=== PATIENT | male | born 1965 | race Two or more races ===

== ENCOUNTER 2017-11-23 21:35 | Emergency (ER) | payer MEDICAID, OTHER ==
[~2017-11-23] VITALS: Ht 177.8 cm; Wt 77.1 kg
[2017-11-23] MEDS ORDERED: cefTRIAXone 1GM/10ml IVPUSH 10 ML IV ONE (21:45)
[2017-11-23] MEDS ORDERED: ONDANSETRON HCL 4 MG/2 ML VIAL IV ONE (21:45)
[2017-11-23] MEDS ORDERED: MORPHINE SULFATE 4 MG/ML SYR/VIAL IV ONE (21:45)
[2017-11-23] MEDS ORDERED: TETANUS-DIPTH-ACEL PERTUSSIS 0.5ML SYRG IM ONE (21:45)
[2017-11-24 02:13] VITALS: BP 132/83
== END 2017-11-24 05:14 | disposition left against medical advice (07) ==
LOC: EDBD 21:35 → ER 21:38
DX: S68.626A Partial traumatic transphalangeal amputation of right little finger, initial encounter (principal); Z53.29 Procedure and treatment not carried out because of patient's decision for other reasons; W23.0XXA Caught, crushed, jammed, or pinched between moving objects, initial encounter; Y93.89 Activity, other specified; Y99.8 Other external cause status; Y92.89 Other specified places as the place of occurrence of the external cause
CPT/HCPCS: 73140; 90471; 90715; 96374; 96375; 99284; J0696; J2270; J2405

== ENCOUNTER 2020-11-30 14:48 | Emergency (ER) | payer MEDICAID ==
[~2020-11-30] VITALS: Ht 167.6 cm; Wt 72.6 kg
[2020-11-30] MEDS ORDERED: HYDROcodone-ACET 10/325MG TAB PO ONE (16:15)
[2020-11-30] MEDS ORDERED: PROPOFOL 100 ML IV ONE (18:10)
[2020-11-30] MEDS ORDERED: PROPOFOL 10 MG/ML 20 ML IV ONE (18:15)
[2020-11-30 18:20] VITALS: BP 135/80
== END 2020-11-30 18:57 | disposition home or self-care (01) ==
LOC: ER 14:48
DX: S93.04XA Dislocation of right ankle joint, initial encounter (principal); S82.401A Unspecified fracture of shaft of right fibula, initial encounter for closed fracture; E11.9 Type 2 diabetes mellitus without complications; I10 Essential (primary) hypertension; W01.0XXA Fall on same level from slipping, tripping and stumbling without subsequent striking against object, initial encounter; Y93.89 Activity, other specified; Y92.89 Other specified places as the place of occurrence of the external cause; Y99.8 Other external cause status
CPT/HCPCS: 27840; 73600; 73700; 99152; 99285; J2704; 29515

== ENCOUNTER → 2020-12-14 | Outpatient (CLI) | payer MEDICAID ==
[~2020-12-14] VITALS: Ht 162.6 cm; Wt 76.7 kg
[~2020-12-14] MED LIST: BROM2.5T5 PO; CLON0.5T3 PO; HYDR-4072 PO; HYDR1TAB97 PO; HYDR25TA4 PO; LATA0.0020 OP; LEVO75CA3 PO; LOSA-69 PO; OMEP20TA PO; TAMS0.4C36 PO
[2020-12-14 14:20] LABS: Basophils # (auto) 0.1 10 ^3/uL (0-0.2); Basophils % (auto) 0.7 % (0.0-2.0); Eosinophils # (auto) 0.2 10 ^3/uL (0-0.8); Lymphocytes # (auto) 1.9 10 ^3/uL (0.4-5.4); Neutrophils # (auto) 5.1 10 ^3/uL (1.6-8.6)
[2020-12-14 14:23] LABS: Eosinophils % (auto) 2.5 % (0.0-7.0); Hematocrit 38.9 % (41.0-53.0); Hemoglobin 12.8 g/dL (13.5-17.5); Lymphocytes % (auto) 23.7 % (10.0-50.0); Mean Corpuscular Hemoglobin 26.3 pg (28.0-32.0); Mean Corpuscular Volume 79.6 fL (80.0-100.0); Monocytes # (auto) 0.6 10 ^3/uL (0-1.3); Monocytes % (auto) 8.3 % (0.0-12.0); Neutrophils % (auto) 64.8 % (37.0-80.0); Nucleated Red Blood Cells % 0.1 %; Red Blood Cells 4.88 10^6/uL (4.5-5.90); Red Cell Distribution Width 16.3 % (11.8-14.3); White Blood Cell 7.8 10^3/uL (4.4-10.8)
[2020-12-14 14:48] LABS: Urine Bacteria NONE SEEN /hpf (None Seen); Urine Blood Negative /uL (Negative); Urine Specific Gravity 1.012 (1.001-1.035); Urine WBC <1 /hpf (0 - 3)
[2020-12-14 15:05] LABS: Albumin 3.6 g/dL (3.4-5.0); Calcium 8.6 mg/dL (8.5-10.1); Potassium 3.4 mmol/L (3.5-5.1)
[2020-12-14 15:24] LABS: BUN/Creatinine Ratio 17.1; Bilirubin, Total 0.4 mg/dL (0.2-1.0); Total Protein 7.9 g/dL (6.4-8.2)
== END | disposition home or self-care (01) ==
LOC: LAB 13:50 → EDSTATUS 12-16 12:27
PROVIDERS: ATTEND Orthopaedic Surgery
DX: Z01.818 Encounter for other preprocedural examination (principal); S82.851A Displaced trimalleolar fracture of right lower leg, initial encounter for closed fracture; Z82.49 Family history of ischemic heart disease and other diseases of the circulatory system; Z20.822 Contact with and (suspected) exposure to COVID-19; X58.XXXA Exposure to other specified factors, initial encounter; Y92.89 Other specified places as the place of occurrence of the external cause; Y93.89 Activity, other specified; Y99.8 Other external cause status
CPT/HCPCS: 36415; 80053; 81001; 85025; U0003

== ENCOUNTER 2020-12-15 14:53 | Inpatient (IN) | payer MEDICAID ==
[~2020-12-15] VITALS: Ht 160 cm; Wt 75.8 kg
[~2020-12-15 14:53] MED LIST changes: -HYDR-4072 PO; -LEVO75CA3 PO
[2020-12-15 17:09] LABS: Basophils # (auto) 0 10 ^3/uL (0-0.2); Basophils % (auto) 0.5 % (0.0-2.0); Hemoglobin 12.8 g/dL (13.5-17.5); Monocytes # (auto) 0.7 10 ^3/uL (0-1.3); White Blood Cell 7.6 10^3/uL (4.4-10.8)
[2020-12-15 17:11] LABS: Eosinophils # (auto) 0.2 10 ^3/uL (0-0.8); Eosinophils % (auto) 2.1 % (0.0-7.0); Hematocrit 38.9 % (41.0-53.0); Lymphocytes # (auto) 1.9 10 ^3/uL (0.4-5.4); Mean Corpuscular Hemoglobin 26.4 pg (28.0-32.0); Mean Corpuscular Volume 80.1 fL (80.0-100.0); Monocytes % (auto) 9.3 % (0.0-12.0); Neutrophils # (auto) 4.8 10 ^3/uL (1.6-8.6); Neutrophils % (auto) 63.1 % (37.0-80.0); Red Blood Cells 4.86 10^6/uL (4.5-5.90)
[2020-12-15 17:52] LABS: Albumin 3.6 g/dL (3.4-5.0); Anion Gap 3 (5-15); Blood Urea Nitrogen 12 mg/dL (7-18); Calcium 8.7 mg/dL (8.5-10.1); Carbon Dioxide 28 mmol/L (21-32); Chloride 96 mmol/L (98-107); Glucose 97 mg/dL (74-106); Potassium 3.3 mmol/L (3.5-5.1); Sodium 127 mmol/L (136-145)
[2020-12-15 18:08] LABS: Alanine Aminotransferase 31 U/L (16-61); Alkaline Phosphatase 85 U/L (45-117); Aspartate Aminotransferase 9 U/L (15-37); BUN/Creatinine Ratio 16.2; Bilirubin, Total 0.3 mg/dL (0.2-1.0); GFR African American 141 mL/min; GFR Non-African American 117 mL/min; Total Protein 8.1 g/dL (6.4-8.2)
[2020-12-15] MEDS ORDERED: POTASSIUM EFFERVESENT TAB 25 MEQ PO ONE (20:45)
[2020-12-15] MEDS ORDERED: SODIUM CHLORIDE 0.9% 1,000 ML IVB ONE (20:45)
[2020-12-16] MEDS ORDERED: ACETAMINOPHEN 325 MG TAB PO PRN (00:30)
[2020-12-16] MEDS ORDERED: HYDROcodone-ACET 5/325MG TAB PO PRN ×2 (00:30→16:45)
[2020-12-16] MEDS ORDERED: ONDANSETRON HCL 4 MG/2 ML VIAL IV PRN ×3 (00:30→16:45)
[2020-12-16] MEDS: SODIUM CHLORIDE 0.9% 1,000 ML IV SCH ×2 (00:31→13:50)
[2020-12-16 01:12] LABS: Urine Bacteria NONE SEEN /hpf (None Seen); Urine Blood Negative /uL (Negative); Urine Specific Gravity 1.008 (1.001-1.035); Urine WBC <1 /hpf (0 - 3)
[2020-12-16 01:30] VITALS: BP 142/89
[2020-12-16 05:00] VITALS: BP 125/76
[2020-12-16] MEDS ORDERED: LEVO75CA3 PO (05:49)
[2020-12-16 06:56] LABS: BUN/Creatinine Ratio 12.9; Calcium 8.3 mg/dL (8.5-10.1); Potassium 3.5 mmol/L (3.5-5.1)
[2020-12-16 08:33] LABS: INR 1.07 (0.9-1.15); Partial Thromboplastin Time 29.1 sec (23.6-33.0)
[2020-12-16 09:30] VITALS: BP 129/90
[2020-12-16] MEDS ORDERED: PANTOPRAZOLE 40 MG TAB PO SCH (10:00)
[2020-12-16] MEDS ORDERED: ceFAZolin 1GM/50ML 100 ML IV ONE (12:32)
[2020-12-16 12:41] VITALS: BP 134/79
[2020-12-16] MEDS ORDERED: HYDROcodone-ACET 10/325MG TAB PO ONE (15:15)
[2020-12-16] MEDS ORDERED: LABETALOL HCL 5 MG/ML 4ML SYRINGE IV PRN (15:30)
[2020-12-16] MEDS ORDERED: MORPHINE SULFATE 4 MG/ML SYR/VIAL IV PRN (15:30)
[2020-12-16] MEDS ORDERED: MIDAZOLAM HCL 2MG/2ML 2ml VIAL (1mg/ml) IV PRN (15:30)
[2020-12-16] MEDS: HYDROmorphone HCL 2 MG/ML VL IV PRN ×2 (15:30→15:42)
[2020-12-16] MEDS ORDERED: ePHEDrine SULFATE 50 MG/ML AMP IV PRN (15:30)
[2020-12-16 16:40] VITALS: BP 153/92
[2020-12-16] MEDS ORDERED: hydrALAZINE HCL 20 MG/ML VL IV PRN (16:45)
[2020-12-16] MEDS ORDERED: HCTZ 25 MG TAB PO SCH (16:45)
[2020-12-16] MEDS ORDERED: LOSARTAN POTASSIUM 50 MG TAB PO SCH (16:45)
[2020-12-16 17:24] VITALS: BP 153/92
[2020-12-16] MEDS ORDERED: HYDR-4072 PO (17:39)
[2020-12-16] MEDS ORDERED: clonazePAM 0.5 MG TAB PO SCH (18:00)
[2020-12-17] MEDS ORDERED: LEVOTHYROXINE SODIUM 50 MCG TAB PO SCH (07:00)
== END 2020-12-16 18:50 | disposition home or self-care (01) | DRG 313 ==
LOC: ER 14:53 → OVERFLOW 12-16 00:17 → WEST WING 12-16 01:16
PROVIDERS: ADMIT Nurse Practitioner; ATTEND Internal Medicine
PROC: 0QSG04Z Reposition Right Tibia with Internal Fixation Device, Open Approach (ICD-10-PCS; 2020-12-16)
PROC: 0QSJ04Z Reposition Right Fibula with Internal Fixation Device, Open Approach (ICD-10-PCS; principal; 2020-12-16 12:31)
DX: S82.851A Displaced trimalleolar fracture of right lower leg, initial encounter for closed fracture (principal); U07.1 COVID-19; E87.1 Hypo-osmolality and hyponatremia; E03.9 Hypothyroidism, unspecified; E87.6 Hypokalemia; E11.9 Type 2 diabetes mellitus without complications; I10 Essential (primary) hypertension; W18.39XA Other fall on same level, initial encounter; N40.0 Benign prostatic hyperplasia without lower urinary tract symptoms; Z82.49 Family history of ischemic heart disease and other diseases of the circulatory system; Z86.61 Personal history of infections of the central nervous system; Y93.89 Activity, other specified; Y92.89 Other specified places as the place of occurrence of the external cause; Y99.8 Other external cause status
CPT/HCPCS: 36415; 71045; 73600; 76000; 80048; 80053; 81001; 83935; 84300; 84484; 85025; 85610; 85730; 86850; 86900; 86901; 87426; 93005; 96360; G0378; J0690; J2405